=== PATIENT | female | born 1990 | race Caucasian/White ===

== ENCOUNTER → 2025-04-19 08:09 | Outpatient (BNVA) | payer OTHER, SELFPAY | PROVIDERS: PCP Nurse Practitioner Family; Visit Provider Internal Medicine Cardiovascular Disease | DX: R00.2 Palpitations (principal); I83.90 Asymptomatic varicose veins of unspecified lower extremity | CPT/HCPCS: 36415; 83735; 84443; 93005; 99204 ==